=== PATIENT | male | born 1985 | race American Indian/Alaskan Native ===

== ENCOUNTER 2017-07-06 14:38 | Inpatient (IN) | payer MEDICARE, OTHER ==
[2017-07-06 15:11] LABS: Basophils % (Auto) 0.6 % (0.0-1.8); Eosinophils % (Auto) 4.4 % (0.0-4.3); Hematocrit 34.7 % (35.5-45.6); Mean Corpuscular HGB Conc 35 % (32-34); Mean Corpuscular Hemoglobin 34 pg (28-32); Mean Corpuscular Volume 97 fl (84-94); Platelet Count 400 K/mm3 (140-440); Red Blood Count 3.59 M/mm3 (3.65-5.03); Red Cell Distribution Width 13.5 % (13.2-15.2); White Blood Count 10.6 K/mm3 (4.5-11.0)
[2017-07-06 15:30] LABS: Anion Gap 20 mmol/L; BUN/Creatinine Ratio 17; Blood Urea Nitrogen 15 mg/dL (9-20); Calcium 8.5 mg/dL (8.4-10.2); Carbon Dioxide 21 mmol/L (22-30); Chloride 96.6 mmol/L (98-107); Glucose 102 mg/dL (75-100); Potassium 3.8 mmol/L (3.6-5.0); Sodium 134 mmol/L (137-145)
[2017-07-06] MEDS ORDERED: NACL 0.9% 1000 ML 1,000 ML IV ONE ×2 (18:31→20:23)
[2017-07-06] MEDS ORDERED: DILAUDID IV ONE ×2 (18:32→20:02)
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
[2017-07-06] MEDS ORDERED: NACL 0.9% 1000 ML 1,000 ML ONE (18:34)
[2017-07-06] MEDS ORDERED: DILAUDID ONE (18:35)
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
[2017-07-06] MEDS ORDERED: ROCEPHIN/NS 1 GM/50 ML 1 GM/50 ML BAG IV ONE (20:02)
[2017-07-06] MEDS ORDERED: LEVAQUIN PO ONE (20:03)
[2017-07-06] MEDS ORDERED: DUONEB *Not for PRN Use IH ONE (20:23)
[2017-07-06 20:39] LABS: Bilirubin,Urine NEG (Negative); Blood,Urine SM (Negative); Ketones,Urine NEG (Negative); Leukocyte Esterase,Urine NEG (Negative); Nitrite,Urine NEG (Negative)
[2017-07-06] MEDS ORDERED: PROVENTIL IH PRN (21:48)
[2017-07-06] MEDS ORDERED: ZOFRAN IV PRN (21:48)
[2017-07-06] MEDS ORDERED: MILK OF MAGNESIA PO PRN (21:48)
[2017-07-06] MEDS ORDERED: DULCOLAX PR PRN (21:48)
[2017-07-06] MEDS ORDERED: TYLENOL PO PRN (21:48)
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
[2017-07-06] MEDS ORDERED: PERCOCET 5/325 ONE (22:35)
[2017-07-06] MEDS: PERCOCET 5/325 PO PRN (22:38)
[2017-07-06] MEDS: FLEXERIL PO PRN (23:18)
[2017-07-06] MEDS ORDERED: FLEXERIL ONE (23:20)
[2017-07-07 05:26] LABS: Hemoglobin 9.8 gm/dl (11.8-15.2); Red Blood Count 2.92 M/mm3 (3.65-5.03); White Blood Count 10.6 K/mm3 (4.5-11.0)
[2017-07-07 05:27] LABS: Hematocrit 28.3 % (35.5-45.6); Mean Corpuscular HGB Conc 35 % (32-34); Mean Corpuscular Hemoglobin 34 pg (28-32); Mean Corpuscular Volume 97 fl (84-94); Platelet Count 394 K/mm3 (140-440); Red Cell Distribution Width 13.9 % (13.2-15.2)
[2017-07-07 05:42] LABS: Anion Gap 16 mmol/L; BUN/Creatinine Ratio 14; Blood Urea Nitrogen 11 mg/dL (9-20); Calcium 7.8 mg/dL (8.4-10.2); Carbon Dioxide 24 mmol/L (22-30); Chloride 104.1 mmol/L (98-107); Glucose 99 mg/dL (75-100); Potassium 4.3 mmol/L (3.6-5.0); Sodium 140 mmol/L (137-145)
[2017-07-07 06:46] LABS: Anisocytosis 1+; Basophils % (Manual) 0 % (0.0-1.8); Blastocytes % (Manual) 0 %; Diff Status Complete; Platelet Estimate Consistent w Auto; Target Cells Rare
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
[2017-07-07] MEDS: LOVENOX SUB-Q SCH (11:32)
[2017-07-07] MEDS: LEVAQUIN 750MG/150ML 750 MG/150 ML BAG IV SCH (11:33)
[2017-07-07] MEDS: PERCOCET 5/325 PO PRN ×2 (15:28→21:52)
[2017-07-07] MEDS: FLEXERIL PO PRN (21:52)
[2017-07-08 06:18] LABS: Hematocrit 30.9 % (35.5-45.6); Hemoglobin 10.6 gm/dl (11.8-15.2); Mean Corpuscular HGB Conc 35 % (32-34); Mean Corpuscular Hemoglobin 33 pg (28-32); Mean Corpuscular Volume 97 fl (84-94); Platelet Count 490 K/mm3 (140-440); Red Cell Distribution Width 14.1 % (13.2-15.2)
[2017-07-08 06:40] LABS: Anion Gap 19 mmol/L; BUN/Creatinine Ratio 10; Blood Urea Nitrogen 7 mg/dL (9-20); Calcium 8.5 mg/dL (8.4-10.2); Carbon Dioxide 23 mmol/L (22-30); Chloride 101.4 mmol/L (98-107); Glucose 99 mg/dL (75-100); Potassium 4.1 mmol/L (3.6-5.0); Sodium 139 mmol/L (137-145)
[2017-07-08] MEDS: PERCOCET 5/325 PO PRN (09:14)
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
[2017-07-08] MEDS: LOVENOX SUB-Q SCH (11:00)
[2017-07-08] MEDS: LEVAQUIN 750MG/150ML 750 MG/150 ML BAG IV SCH (11:00)
[2017-07-08 15:43] VITALS: BP 124/71
== END 2017-07-08 16:45 | disposition home or self-care (01) | DRG 177 ==
LOC: ED 14:38 → 3A 21:48
PROVIDERS: ADMIT Internal Medicine; ATTEND Internal Medicine
DX: J69.0 Pneumonitis due to inhalation of food and vomit (principal); J96.01 Acute respiratory failure with hypoxia; F17.210 Nicotine dependence, cigarettes, uncomplicated; G62.9 Polyneuropathy, unspecified; F98.8 Other specified behavioral and emotional disorders with onset usually occurring in childhood and adolescence; D63.8 Anemia in other chronic diseases classified elsewhere; N31.2 Flaccid neuropathic bladder, not elsewhere classified; J18.9 Pneumonia, unspecified organism; Z82.49 Family history of ischemic heart disease and other diseases of the circulatory system; Z72.89 Other problems related to lifestyle
CPT/HCPCS: 36415; 71275; 80048; 81001; 82805; 82962; 84484; 85007; 85025; 85027; 85379; 87040; 87086; 93005; 93010; J0696; J1170; J1650; J1956; J7030; Q9967